=== PATIENT | female | born 1995 | race Caucasian/White ===

== ENCOUNTER 2018-12-25 16:23 | Emergency (ER) | payer MEDICAID ==
[~2018-12-25] VITALS: Ht 152.4 cm; Wt 68.2 kg
[~2018-12-25 16:23] MED LIST: NO HOME MEDS
[2018-12-25 16:35] VITALS: BP 134/98
[2018-12-25] MEDS ORDERED: HYDROcodone/acetaminophen 5mg/325mg tablet PO ONE (16:40)
[2018-12-25] MEDS ORDERED: LIDOcaine 1% 30ml preserv. free vial IJ ONE (16:40)
[2018-12-25] MEDS ORDERED: ondansetron 4mg rapidly disintigrating tab PO ONE (16:40)
[2018-12-25] MEDS ORDERED: LIDOcaine/epinephrine TOPICAL 5 ML BTL TOP ONE (16:40)
[2018-12-25] MEDS ORDERED: bacitracin 15gm ointment TP ONE (16:40)
[2018-12-25] MEDS ORDERED: TETanus/Pertussis (Acell)/Diphther VAC/PF (Tdap-Adult) 0.5ml syringe IM ONE (16:40)
== END 2018-12-25 18:10 | disposition home or self-care (01) ==
LOC: ER 16:23
DX: S61.201A Unspecified open wound of left index finger without damage to nail, initial encounter (principal); W26.0XXA Contact with knife, initial encounter; Y93.89 Activity, other specified; Y92.098 Other place in other non-institutional residence as the place of occurrence of the external cause; Y99.8 Other external cause status
CPT/HCPCS: 73140; 90471; 90715; 99283; J3490

== ENCOUNTER 2019-11-29 19:20 | Emergency (ER) | payer MEDICAID ==
[~2019-11-29] VITALS: Ht 152.4 cm; Wt 75.0 kg
[2019-11-29 20:03] VITALS: BP 136/79
[2019-11-29] MEDS ORDERED: MUPI22OI30 TOP (20:29)
== END 2019-11-29 20:42 | disposition home or self-care (01) ==
LOC: ER 19:21
DX: L73.9 Follicular disorder, unspecified (principal); L53.9 Erythematous condition, unspecified; Z72.89 Other problems related to lifestyle
CPT/HCPCS: 99283

== ENCOUNTER 2020-04-12 04:03 | Emergency (ER) | payer MEDICAID ==
[~2020-04-12] VITALS: Ht 152.4 cm; Wt 65.0 kg
[2020-04-12] MEDS ORDERED: acetaminophen 325mg tablet PO ONE ×2 (04:15→05:00)
[2020-04-12 04:43] LABS: CLARITY,URINE CLEAR (Clear); COLOR,URINE YELLOW (Yellow); GLUCOSE, URINE NEGATIVE (Neg); KETONES,URINE 15 mg/dl (Neg); LEUKOCYTE ESTERASE ,URINE TRACE (Neg); NITRITES, URINE NEGATIVE (Neg); OCCULT BLOOD,URINE SMALL (Neg); PROTEIN,URINE NEGATIVE (Neg); URINE HCG NEGATIVE (NEG); UROBILINOGEN,URINE 0.2 E.U/dL (0.2-1.0)
[2020-04-12 04:46] LABS: UA COLLECTION TYPE CLN CATCH MIDSTREAM
[2020-04-12 04:50] LABS: BACTERIA,URINE 1+ /HPF (Neg); RBC,URINE 0-2 /HPF (0-2); SQUAMOUS EPITHELIAL CELL,UR MODERATE /LPF (FEW)
[2020-04-12 07:13] VITALS: BP 111/77
== END 2020-04-12 07:15 | disposition home or self-care (01) ==
LOC: ER 04:04
DX: J11.1 Influenza due to unidentified influenza virus with other respiratory manifestations (principal); J02.9 Acute pharyngitis, unspecified; R05 Cough; Z72.89 Other problems related to lifestyle
CPT/HCPCS: 36415; 71045; 81001; 81025; 87502; 87503; 99284; U0003

== ENCOUNTER 2020-04-14 21:43 | Emergency (ER) | payer MEDICAID ==
[~2020-04-14] VITALS: Ht 157.5 cm; Wt 63.6 kg
[2020-04-14 21:45] VITALS: BP 133/84
== END 2020-04-14 23:18 | disposition home or self-care (01) ==
LOC: ER 21:43
DX: R05 Cough (principal); R07.89 Other chest pain; R50.9 Fever, unspecified; R06.02 Shortness of breath; Z72.89 Other problems related to lifestyle
CPT/HCPCS: 71045; 93005; 99283

== ENCOUNTER 2022-09-18 17:41 | Emergency (ER) | payer MEDICAID ==
[~2022-09-18] VITALS: Ht 152.4 cm; Wt 70.5 kg
[2022-09-18 18:02] VITALS: BP 116/77
== END 2022-09-18 20:12 | disposition left against medical advice (07) ==
LOC: ER 17:42
DX: R50.9 Fever, unspecified (principal); Z53.21 Procedure and treatment not carried out due to patient leaving prior to being seen by health care provider; M79.10 Myalgia, unspecified site

== ENCOUNTER 2024-05-16 02:44 | Emergency (ER) | payer MEDICAID ==
[~2024-05-16] VITALS: Ht 152.4 cm; Wt 78.3 kg
[2024-05-16 02:48] VITALS: BP 142/92; PULSE 85; RESP 16; TEMP 97.7; O2SAT 100
== END 2024-05-16 06:05 | disposition left against medical advice (07) ==
LOC: ER 02:44
DX: R10.13 Epigastric pain (principal); R11.10 Vomiting, unspecified; Z53.21 Procedure and treatment not carried out due to patient leaving prior to being seen by health care provider